=== PATIENT | female | born 1945 | race Caucasian/White ===

== ENCOUNTER → 2021-08-05 | Outpatient (CLI) | payer MEDICARE, OTHER ==
[~2021-08-05] MED LIST: ANTIVERT 25MG T25 MG PO; COMBIVENT0.074 GM/I INH; PROTONIX40 MG PO
== END ==
LOC: EXRD 08:25
DX: K59.00 Constipation, unspecified (principal); Z90.49 Acquired absence of other specified parts of digestive tract; M47.819 Spondylosis without myelopathy or radiculopathy, site unspecified; I74.09 Other arterial embolism and thrombosis of abdominal aorta
CPT/HCPCS: 74018; 93979

== ENCOUNTER → 2022-03-06 | Outpatient (CLI) | payer MEDICARE, OTHER | LOC: US 13:38 | DX: R06.02 Shortness of breath (principal); M79.662 Pain in left lower leg; M79.89 Other specified soft tissue disorders; I71.2 Thoracic aortic aneurysm, without rupture | CPT/HCPCS: 71046; 93971 ==

== ENCOUNTER → 2022-03-24 | Outpatient (CLI) | payer MEDICARE, OTHER | LOC: CT 07:13 | DX: I71.2 Thoracic aortic aneurysm, without rupture (principal) | CPT/HCPCS: 36415; 71275; 82565; Q9967 ==